=== PATIENT | female | born 1995 | race African-American/Black ===

== ENCOUNTER 2021-06-09 15:39 | Emergency (ER) | payer OTHER ==
[~2021-06-09] VITALS: Ht 152.4 cm; Wt 46.0 kg
[2021-06-09 15:46] VITALS: BP 104/51
[2021-06-09] MEDS ORDERED: OFLO5DRO4 LEFT EAR (16:26)
[2021-06-09] MEDS ORDERED: IBUP-2028 MT (16:26)
[2021-06-09] MEDS ORDERED: IBUPROFEN 600MG TABLET PO ONE (16:30)
== END 2021-06-09 16:45 | disposition home or self-care (01) ==
LOC: ER 15:39
DX: H60.92 Unspecified otitis externa, left ear (principal)
CPT/HCPCS: 99283